=== PATIENT | female | born 1940 | race Hispanic/Latino ===

== ENCOUNTER 2022-06-01 18:18 | Emergency (ER) | payer MEDICARE ==
[2022-06-01 19:06] LABS: Hematocrit 46.5 % (30.3-42.9); Hemoglobin 15.6 gm/dl (10.1-14.3); Mean Corpuscular HGB Conc 34 % (30-34); Mean Corpuscular Volume 98 fl (79-97); Platelet Count 372 K/mm3 (140-440); Red Blood Count 4.76 M/mm3 (3.65-5.03)
[2022-06-01 19:26] LABS: Partial Thromboplastin Time 25.9 Sec. (24.2-36.6)
[2022-06-01 19:27] LABS: Blood Urea Nitrogen 10 mg/dL (7-17); Calcium 9.3 mg/dL (8.4-10.2); Hemolysis Index 5
[2022-06-01 19:28] LABS: BUN/Creatinine Ratio 25
[2022-06-01 19:33] LABS: INR 0.87 (0.87-1.13)
--- NOTE | 2022-06-01 20:54 | Cat Scan Report ---
CT head/brain wo con INDICATION: neuro deficits <6hrs or sx present upon awakening. TECHNIQUE: Routine CT head. All CT scans at this location are performed using CT dose reduction for A TODD by means of automated exposure control. COMPARISON: None. FINDINGS: Intracranial: Morin-white matter differentiation is maintained. No intracranial hemorrhage. No extra a xial collection. No hydrocephalus. No herniation. Mild sequela of chronic microvascular disease. Sinuses: Paranasal sinuses and mastoid air cells are essentially clear. Orbits: Globes are intact. Calvarium: No acute fracture. IMPRESSION: 1. No acute intracranial abnormality. Signer Name: Refugio Goldman MD Signed: 06/01/2022 8:50 PM Workstation Name: [id number]
[2022-06-02 00:05] LABS: Basophils % (Manual) 0 % (0.0-1.8); Total Cells Counted 100
[2022-06-02 00:06] LABS: Platelet Estimate Consistent w Auto; RBC Morphology Normal
[2022-06-02] MEDS ORDERED: SODIUM CHLORIDE 0.9% 1000 ML 1,000 ML IV ONE (02:06)
[2022-06-02] MEDS ORDERED: ACETAMINOPHEN 325 MG TAB PO ONE (02:06)
[2022-06-02] MEDS ORDERED: MECLIZINE 25 MG TAB PO ONE (02:06)
--- NOTE | 2022-06-02 02:12 | Emergency Department Report ---
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 Patient describes the symptoms as a lightheadedness which are exacerbated by standing up and ambulation. Patient feels off balance with ambulation. She did have 1 episode of nausea and vomiting with dizzy episode during symptom onset but not vomiting since. She also complains about intermittent frontal headache which is currently rated 6/10 in intensity without aggravating factors. No focal weakness or numbness reported. She denies chest pain, shortness of breath, dysuria, or fever. Patient was seen at a [facility] urgent clinic prior to ED evaluation and had a negative COVID test, strep test, flu test, and urine analysis that showed only moderate blood prior to arrival. She was sent to the ER due to concerns of her EKG which was read as PACs with left axis deviation and left anterior fascicular block. Patient states she was provided Tylenol prior to coming to the ER - Related Data Previous Rx's Medication Instructions Recorded Last Taken Type Meclizine [Antivert] 25 mg PO TID PRN #20 tab 06/02/22 Unknown Rx Allergies Allergy/AdvReac Type Severity Reaction Status Date / Time codeine AdvReac Dizziness Verified 06/01/22 18:47 ED Review of Systems ROS: Stated complaint: DR BONE/EKG ABNORMAL/HEADACHE/DIZZY Other details as noted in HPI Comment: All other systems reviewed and negative ED Past Medical Hx - Past Medical History Additional medical history: nerve pain - Surgical History Additional Surgical History: cataract sx , hysterectomy - Social History Smoking Status: Never Smoker - Medications Home Medications: Home Medications Medication Instructions Recorded Confirmed Last Taken Type Meclizine [Antivert] 25 mg PO TID PRN #20 tab 06/02/22 Unknown Rx ED Physical Exam - General Limitations: No Limitations - Other Other exam information: General: No acute distress Head: Atraumatic Eyes: normal appearance, no nystagmus, pupils equal reactive to light ENT: Moist mucous membranes Neck: Normal appearance, no midline tenderness Chest: Clear to auscultation bilaterally CV: Regular rate and rhythm Abdomen: Soft, normal bowel sounds, nontender, nondistended, no rebound or guar ding Back: Normal inspection Extremity: Normal inspection, full range of motion Neuro: Alert O x 3, no facial asymmetry, speech clear, no gross motor sensory deficit, [id number] function intact Psych: Appropriate behavior Skin: No rash ED Course Vital Signs 06/01/22 06/01/22 06/02/22 18:41 23:55 01:49 Temperature 98.9 F Pulse Rate 88 78 83 Respiratory 14 18 15 Rate Blood Pressure 152/91 151/90 Blood Pressure 143/79 [Left] O2 Sat by Pulse 96 96 97 Oximetry 06/02/22 02:25 Temperature Pulse Rate 88 Respiratory 15 Rate Blood Pressure Blood Pressure 137/84 [Left] O2 Sat by Pulse 98 Oximetry ED Medical Decision Making - Lab Data Result diagrams: 06/01/22 18:50 06/01/22 18:50 Lab Results 06/01/22 06/01/22 06/01/22 Range/Units 18:50 18:50 18:50 WBC 8.9 (4.5-11.0) K/mm3 RBC 4.76 (3.65-5.03) M/mm3 Hgb 15.6 H (10.1-14.3) gm/dl Hct 46.5 H (30.3-42.9) % MCV 98 H (79-97) fl MCH 33 H (28-32) pg MCHC 34 (30-34) % RDW 13.0 L (13.2-15.2) % Plt Count 372 (140-440) K/mm3 Baso % (Auto) Credit Collection Specialist Add Manual Diff Complete Total Counted 100 Seg Neuts % (Manual) 79.0 H (40.0-70.0) % Band Neutrophils % 0 % Lymphocytes % (Manual) 17.0 (13.4-35.0) % Reactive Lymphs % (Man) 0 % Monocytes % (Manual) 3.0 (0.0-7.3) % Eosinophils % (Manual) 1.0 (0.0-4.3) % Basophils % (Manual) 0 (0.0-1.8) % Metamyelocytes % 0 % Myelocytes % 0 % Promyelocytes % 0 % Blast Cells % 0 % Nucleated RBC % Not Reportable Seg Neutrophils # Man 7.0 (1.8-7.7) K/mm3 Band Neutrophils # 0.0 K/mm3 Lymphocytes # (Manual) 1.5 (1.2-5.4) K/mm3 Abs React Lymphs (Man) 0.0 K/mm3 Monocytes # (Manual) 0.3 (0.0-0.8) K/mm3 Eosinophils # (Manual) 0.1 (0.0-0.4) K/mm3 Basophils # (Manual) 0.0 (0.0-0.1) K/mm3 Metamyelocytes # 0.0 K/mm3 Myelocytes # 0.0 K/mm3 Promyelocytes # 0.0 K/mm3 Blast Cells # 0.0 K/mm3 WBC Morphology Not Reportable Hypersegmented Neuts Not Reportable Hyposegmented Neuts Not Reportable Hypogranular Neuts Not Reportable Smudge Cells Not Reportable Toxic Granulation Not Reportable Toxic Vacuolation Not Reportable Dohle Bodies Not Reportable Pelger-Huet Anomaly Not Reportable Danielle Rods Not Reportable Platelet Estimate Consistent w auto Clumped Platelets Not Reportable Plt Clumps, EDTA Not Reportable Large Platelets Not Reportable Giant Platelets Not Reportable Platelet Satelliting Not Reportable Plt Morphology Comment Not Reportable RBC Morphology Normal Dimorphic RBCs Not Reportable Polychromasia Not Reportable Hypochromasia Not Reportable Poikilocytosis Not Reportable Anisocytosis Not Reportable Microcytosis Not Reportable Macrocytosis Not Reportable Spherocytes Not Reportable Pappenheimer Bodies Not Reportable Sickle Cells Not Reportable Target Cells Not Reportable Tear Drop Cells Not Reportable Ovalocytes Not Reportable Helmet Cells Not Reportable [place] Bodies Not Reportable [place] Rings Not Reportable [place] Cells Not Reportable Bite Cells Not Reportable Crenated Cell Not Reportable Elliptocytes Not Reportable Acanthocytes (Spur) Not Reportable Rouleaux Not Reportable Hemoglobin C Crystals Not Reportable Schistocytes Not Reportable Malaria parasites Not Reportable Chau Bodies Not Reportable Hem Pathologist Commnt No PT 13.0 (12.2-14.9) Sec. INR 0.87 (0.87-1.13) APTT 25.9 (24.2-36.6) Sec. Thrombin Time (15.1-19.6) Sec. Sodium 139 (137-145) mmol/L Potassium 4.0 (3.6-5.0) mmol/L Chloride 103.7 (98-107) mmol/L Carbon Dioxide 24 (22-30) mmol/L Anion Gap 15 mmol/L BUN 10 (7-17) mg/dL Creatinine 0.4 L (0.6-1.2) mg/dL Estimated GFR > 60 ml/min BUN/Creatinine Ratio 25 % Glucose 100 (65-100) mg/dL Calcium 9.3 (8.4-10.2) mg/dL Magnesium (1.7-2.3) mg/dL Troponin T < 0.010 (0.00-0.029) ng/mL 06/01/22 06/02/22 Range/Units 18:50 02:20 WBC (4.5-11.0) K/mm3 RBC (3.65-5.03) M/mm3 Hgb (10.1-14.3) gm/dl Hct (30.3-42.9) % MCV (79-97) fl MCH (28-32) pg MCHC (30-34) % RDW (13.2-15.2) % Plt Count (140-440) K/mm3 Baso % (Auto) Add Manual Diff Total Counted Seg Neuts % (Manual) (40.0-70.0) % Band Neutrophils % % Lymphocytes % (Manual) (13.4-35.0) % Reactive Lymphs % (Man) % Monocytes % (Manual) (0.0-7.3) % Eosinophils % (Manual) (0.0-4.3) % Basophils % (Manual) (0.0-1.8) % Metamyelocytes % % Myelocytes % % Promyelocytes % % Blast Cells % % Nucleated RBC % Seg Neutrophils # Man (1.8-7.7) K/mm3 Band Neutrophils # K/mm3 Lymphocytes # (Manual) (1.2-5.4) K/mm3 Abs React Lymphs (Man) K/mm3 Monocytes # (Manual) (0.0-0.8) K/mm3 Eosinophils # (Manual) (0.0-0.4) K/mm3 Basophils # (Manual) (0.0-0.1) K/mm3 Metamyelocytes # K/mm3 Myelocytes # K/mm3 Promyelocytes # K/mm3 Blast Cells # K/mm3 WBC Morphology Hypersegmented Neuts Hyposegmented Neuts Hypogranular Neuts Smudge Cells Toxic Granulation Toxic Vacuolation Dohle Bodies Pelger-Huet Anomaly Danielle Rods Platelet Estimate Clumped Platelets Plt Clumps, EDTA Large Platelets Giant Platelets Platelet Satelliting Plt Morphology Comment RBC Morphology Dimorphic RBCs Polychromasia Hypochromasia Poikilocytosis Anisocytosis Microcytosis Macrocytosis Spherocytes Pappenheimer Bodies Sickle Cells Target Cells Tear Drop Cells Ovalocytes Helmet Cells [place] Bodies [place] Rings Leoncio Cells Bite Cells Crenated Cell Elliptocytes Acanthocytes (Spur) Rouleaux Hemoglobin C Crystals Schistocytes Malaria parasites Chau Bodies Hem Pathologist Commnt PT (12.2-14.9) Sec. INR (0.87-1.13) APTT (24.2-36.6) Sec. Thrombin Time 17.3 (15.1-19.6) Sec. Sodium (137-145) mmol/L Potassium (3.6-5.0) mmol/L Chloride (98-107) mmol/L Carbon Dioxide (22-30) mmol/L Anion Gap mmol/L BUN (7-17) mg/dL Creatinine (0.6-1.2) mg/dL Estimated GFR ml/min BUN/Creatinine Ratio % Glucose (65-100) mg/dL Calcium (8.4-10.2) mg/dL Magnesium 1.90 (1.7-2.3) mg/dL Troponin T < 0.010 (0.00-0.029) ng/mL - EKG Data -: EKG Interpreted by Me (PACs with left anterior fascicular block) EKG shows normal: sinus rhythm Rate: normal - EKG Data When compared to previous EKG there are: no significant change (Compared to EKG performed 4:58 PM prior to ED arrival) - Radiology Data Radiology results: report reviewed CT head/brain wo con INDICATION: neuro deficits <6hrs or sx present upon awakening. TECHNIQUE: Routine CT head. All CT scans at this location are performed using CT dose reduction for ALARA by means of automated exposure control. COMPARISON: None. FINDINGS: Intracranial: Morin-white matter differentiation is maintained. No intracranial hemorrhage. No extra axial collection. No hydrocephalus. No herniation. Mild sequela of chronic microvascular disease. Sinuses: Paranasal sinuses and mastoid air cells are essentially clear. Orbits: Globes are intact. Calvarium: No acute fracture. IMPRESSION: 1. No acute intracranial abnormality. CTA HEAD AND NECK HISTORY:intermittent dizziness COMPARISON: CT head without contrast performed on 06/01/2022. TECHNIQUE: CT of the head. CTA of the neck and head is performed after IV contrast. 3-D/MIP reformats were postprocessed. Percentage stenosis is determined by direct quantitative measurements of diseased internal carotid artery diameter compared with normal distal internal carotid artery reference segments or by criteria similar to NASCET where applicable. All CT scans at this location are performed using CT dose reduction for ALARA by means of automated exposure control. FINDINGS: CTA NECK: Aortic arch: There is moderate atherosclerosis without other significant abnormalities. Cervical vertebral arteries: No occlusion or hemodynamically significant stenosis. Common Carotid arteries: There is moderate nonobstructive atherosclerosis bilaterally. No occlusion or hemodynamically significant stenosis. Internal carotid arteries: Mild nonobstructive calcification is noted bilaterally without identification of occlusion or hemodynamically significant stenosis. CTA HEAD: Intracranial vertebral arteries: No occlusion or significant stenosis. Basilar artery: No occlusion or significant stenosis. Posterior cerebral arteries: No occlusion or significant stenosis. Intracranial internal carotid arteries: No occlusion or significant stenosis. Anterior cerebral arteries: No occlusion or significant stenosis. Middle cerebral arteries: No occlusion or significant stenosis. No aneurysm. Additional findings: None. IMPRESSION: 1. CTA NECK: No occlusion or significant stenosis of the carotid or vertebral arteries. 2. CTA HEAD: No occlusion or significant stenosis of the major intracranial vasculature. - Medical Decision Making 81-year female presents from [facility] urgent care for complaints of intermittent dizziness and headache for 2 days. Symptoms improved in the ED with Tylenol, meclizine, and IV fluids. Vital signs suggest orthostatic tachycardia secondary to hypotension. CT head and CT angio head and neck were unremarkable and patient has a nonfocal neurological exam. After ED treatment patient is able to ambulate unassisted with steady gait. Frequent PACs noted on quality assurance monitor final without other cardiac arrhythmia. Patient reports that she received [facility] stress testing approximately 3 years ago. She does not have shortness of breath, chest pain, or palpitations. She will be advised to follow-up with [facility] as outpatient for further evaluation. Critical Care Time: No Critical care attestation.: If time is entered above; I have spent that time in minutes in the direct care of this critically ill patient, excluding procedure time. ED Disposition Clinical Impression: Dizziness, Orthostasis, PAC (premature atrial contraction) Disposition: 01 HOME / SELF CARE / HOMELESS Is pt being admited?: No Does the pt Need Aspirin: No Instructions: Premature Atrial Contraction, Orthostatic Hypotension, Dizziness, [id number] Additional Instructions: His symptoms are likely secondary to dehydration given the increase in your heart rate when you stood up in the hospital. You were treated with IV fluids. You are also treated with meclizine which is a medication specific for vertigo. Continue to drink plenty of fluids at home to hydrate. Take the prescribed meclizine as needed if dizziness persists. Follow-up with your doctor or doctor/clinic provided. Follow-up with [facility] specialist for reevaluation of your heart. Return if symptoms worsen as indicated by your discharge instructions. Prescriptions: Meclizine [Antivert] 25 mg PO TID PRN #20 tab PRN Reason: Vertigo Referrals: JOSE JUAN STONE MD [Staff Physician] - 3-5 Days your, primary care doctor [Other] - 3-5 Days LY RECIO MD [Staff Physician] - 3-5 Days ([facility]) Time of Disposition: 04:33
[2022-06-02] MEDS ORDERED: KETOROLAC 30 MG/1 ML INJ IV ONE (02:20)
--- NOTE | 2022-06-02 03:43 | Cat Scan Report ---
CTA HEAD AND NECK HISTORY:intermittent dizziness COMPARISON: CT head without contrast performed on 06/01/2022. TECHNIQUE: CT of the head. CTA of the neck and head is performed after IV contrast. 3-D/MIP reformats were postprocessed. Percentage stenosis is determined by direct quantitative measurements of diseas ed internal carotid artery diameter compared with normal distal internal carotid artery reference seg ments or by criteria similar to NASCET where applicable. All CT scans at this location are performed using CT dose reduction for ALARA by means of automated exposure control. FINDINGS: CTA NECK: Aortic arch: There is moderate atherosclerosis without other significant abnormalities. Cervical vertebral arteries: No occlusion or hemodynamically significant stenosis. Common Carotid arteries: There is moderate nonobstructive atherosclerosis bilaterally. No occlusion o r hemodynamically significant stenosis. Internal carotid arteries: Mild nonobstructive calcification is noted bilaterally without identificat ion of occlusion or hemodynamically significant stenosis. CTA HEAD: Intracranial vertebral arteries: No occlusion or significant stenosis. Basilar artery: No occlusion or significant stenosis. Posterior cerebral arteries: No occlusion or significant stenosis. Intracranial internal carotid arteries: No occlusion or significant stenosis. Anterior cerebral arteries: No occlusion or significant stenosis. Middle cerebral arteries: No occlusion or significant stenosis. No aneurysm. Additional findings: None. IMPRESSION: 1. CTA NECK: No occlusion or significant stenosis of the carotid or vertebral arteries. 2. CTA HEAD: No occlusion or significant stenosis of the major intracranial vasculature. Signer Name: Abraham Goldstein MD Signed: 06/02/2022 3:39 AM Workstation Name: [id number]
[2022-06-02 05:05] VITALS: BP 133/70
--- NOTE | 2022-06-03 18:18 | Electrocardiograph Report ---
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
== END 2022-06-02 05:04 | disposition home or self-care (01) ==
LOC: ED 18:18
DX: I49.1 Atrial premature depolarization (principal); I95.1 Orthostatic hypotension; R42 Dizziness and giddiness; R79.1 Abnormal coagulation profile; Z90.710 Acquired absence of both cervix and uterus; Z98.890 Other specified postprocedural states; Z88.5 Allergy status to narcotic agent; Z79.899 Other long term (current) drug therapy
CPT/HCPCS: 36415; 70450; 70496; 70498; 80048; 83735; 84484; 85007; 85025; 85610; 85670; 85730; 93005; 96361; 96374; 99284; J1885; J7030; Q9967